=== PATIENT | male | born 1960 | race Caucasian/White ===

== ENCOUNTER → 2021-06-10 | Outpatient (CLI) | payer OTHER ==
[~2021-06-10] MED LIST: BACTRIM DS 8001 TAB PO; LEVOXYL0.15 MG PO
== END ==
LOC: COL.RAD 08:51
DX: Z02.71 Encounter for disability determination (principal); M48.061 Spinal stenosis, lumbar region without neurogenic claudication; M48.07 Spinal stenosis, lumbosacral region